=== PATIENT | male | born 1960 | race Caucasian/White ===

== ENCOUNTER 2018-04-14 15:30 | Outpatient (CLI) | payer OTHER ==
--- NOTE | 2018-04-14 18:04 | XRAY Report ---
THREE VIEW RIGHT HAND: 04/14/2018 CLINICAL INDICATION: Trauma, pain. FINDINGS: AP, lateral, oblique views of the right hand demonstrate mild osteoarthritis of the interphalangeal joints. There is no evidence of acute fracture or dislocation. Soft tissue swelling is seen of the 5th finger. No foreign body is appreciated in the soft tissues. IMPRESSION: SOFT TISSUE SWELLING, BUT NO EVIDENCE OF ACUTE FRACTURE. TD: 04/14/2018 15:54
== END 2018-04-14 15:31 | disposition home or self-care (01) ==
LOC: DI 15:30
PROVIDERS: ATTEND Family Medicine
DX: S60.221A Contusion of right hand, initial encounter (principal); M79.89 Other specified soft tissue disorders

== ENCOUNTER 2018-06-16 13:35 | Outpatient (CLI) | payer OTHER ==
--- NOTE | 2018-06-16 16:46 | XRAY Report ---
Procedure Date: 06/16/2018 Accession Number: [id number] / [id number] Procedure: XRS - Foot 3 View LT CPT Code: FULL RESULT: EXAM: Foot 3 View LT DATE: 06/16/2018 1:45 PM CLINICAL HISTORY: CHRONIC PAIN 1ST MP JOINT HALLUX L COMPARISON: None. TECHNIQUE: 3 views. FINDINGS: There is no fracture or dislocation. There is joint space loss of the first metatarsophalangeal joint with marginal osteophytosis laterally and subchondral sclerosis. IMPRESSION: Degenerative changes of the first metatarsophalangeal joint as described. RADIA
== END 2018-06-16 13:36 | disposition home or self-care (01) ==
LOC: DI.S 13:35
PROVIDERS: ATTEND Podiatrist
DX: M19.072 Primary osteoarthritis, left ankle and foot (principal)

== ENCOUNTER 2019-03-05 12:02 | Emergency (ER) | payer OTHER ==
[2019-03-05 12:13] VITALS: BP 130/63
[2019-03-05] MEDS ORDERED: TETANUS/DIPHTHERIA/PERTUSSIS 0.5 ML SYRINGE IM ONE (13:20)
--- NOTE | 2019-03-05 13:24 | ED Physician Documentation ---
PD HPI UPPER EXT INJURY - Stated complaint Stated Complaint: L THUMB LAC - Chief complaint Chief Complaint: Laceration - History obtained from History obtained from: Patient - History of Present Illness Location: Left, Finger (thumb) Type of injury: Laceration Where injury occurred: Work Timing - onset: Today (just prior to arrival) - Additonal information Additional information: The patient is a 59-year-old right-hand dominant male who cut his left thumb with a utility knife while at work less than one hour prior to arrival. Last tetanus booster date is unknown. Review of Systems Skin: reports: Laceration (s) Neurologic: denies: Focal weakness, Numbness PD PAST MEDICAL HISTORY - Past Medical History Endocrine/Autoimmune: None - Allergies Allergies/Adverse Reactions: Allergies Allergy/AdvReac Type Severity Reaction Status Date / Time No Known Drug Allergies Allergy Verified 03/05/19 12:08 - Social History Does the pt smoke?: No PD ED PE NORMAL - Vitals Vital signs reviewed: Yes (normal) - General General: Alert and oriented X 3, Well developed/nourished - HEENT HEENT: Atraumatic - Respiratory Respiratory: No respiratory distress - Derm Derm: No rash - Extremities Extremities: Other (There is a 1 cm laceration on the radial aspect of the left thumb, distal to the IP joint. He has full flexion and extension at the IP and MP joints, against resistance. Distal neurovascular is intact.) - Neuro Neuro: Alert and oriented X 3, No motor deficit, No sensory deficit Results - Vitals Vitals: Oxygen O2 Source Room air Procedures - Laceration (location) left thumb Length in cm: 1 Wound type: Linear Neurovascular status: Sensory intact, Motor intact, Vascular intact Tendon involvement: Tendon intact Anesthesia: Lidocaine 1% with epi Wound Preparation: Hibiclens, Irrigated copiously NS, Wound explored, To the base. No: FB identified Skin layer closure: Nylon, Interrupted, Size #-0 - enter number (5), Sutures - enter # (4) Other: Patient tolerated well, No complications, Neurovascular intact, Dressing applied, Tetanus booster given Complexity: Simple PD MEDICAL DECISION MAKING - ED course Complexity details: d/w patient, other (L&I form was completed.) ED course: The patient's presentation is significant for laceration to the left thumb. There is no evidence of foreign body, tendon involvement, or neurovascular injury. Treatment in the emergency department included suture repair of the wound after local anesthetic and thorough cleaning. Antibiotic ointment and gauze dressing was applied. Tetanus booster was administered. Departure - Departure Disposition: 01 Home, Self Care Clinical Impression: Laceration Condition: Stable Instructions: ED Laceration Hand Follow-Up: Malathi Ellison MD [Physician No Access] - Comments: Keep the wound clean, and apply antibiotic ointment daily. You can use Tylenol or ibuprofen if needed for pain or discomfort. Follow-up for suture removal in 10-12 days. Return to the emergency department if you develop any sign of infection, or otherwise worsening symptoms. Discharge Date/Time: 03/05/19 13:41
== END 2019-03-05 13:41 | disposition home or self-care (01) ==
LOC: ED 12:02
DX: S61.012A Laceration without foreign body of left thumb without damage to nail, initial encounter (principal); W26.0XXA Contact with knife, initial encounter; Y99.0 Civilian activity done for income or pay; Z23 Encounter for immunization
CPT/HCPCS: 1040M; 12001; 90471; 90715; 99282; 99283

== ENCOUNTER 2020-02-17 18:18 | Outpatient (CLI) | payer OTHER | END 2020-02-17 18:19 | disposition home or self-care (01) | LOC: COV 18:18 | PROVIDERS: ATTEND Family Medicine | DX: R05 Cough (principal) ==

== ENCOUNTER 2020-09-30 18:10 | Outpatient (CLI) | payer MEDICAID ==
--- NOTE | 2020-09-30 18:51 | XRAY Report ---
PROCEDURE: Hand 3 View RT INDICATIONS: RIGHT DORSAL WRIST PAIN , R WRIST AND HAND SWELLING, PAIN 4TH MCP TECHNIQUE: 3 views of the hand(s) acquired. COMPARISON: 04/14/2018 FINDINGS: Bones: No fractures or dislocations. No suspicious bony lesions. Soft tissues: No suspicious soft tissue calcifications. IMPRESSION: Right hand without acute osseous abnormalities or dislocation. If there is persistent clinical concern for a radiographically fracture, recommend immobilization and repeat imaging in 10 to 14 days. Reviewed by: Que Fournier MD on 09/30/2020 5:49 PM [facility] Approved by: Que Fournier MD on 09/30/2020 5:49 PM [facility] Station ID: [id number]
--- NOTE | 2020-09-30 18:52 | XRAY Report ---
PROCEDURE: Wrist 4 View RT INDICATIONS: RIGHT DORSAL WRIST PAIN , R WRIST AND HAND SWELLING, PAIN 4TH MCP TECHNIQUE: 4 views of the wrist were acquired. COMPARISON: Right hand radiographs dated 04/14/2018 FINDINGS: Bones: No fractures or dislocations. No suspicious bony lesions. Scaphoid view: Scaphoid appears intact. Scapholunate interval is maintained. Soft tissues: No suspicious soft tissue calcifications. Mild soft tissue swelling over the dorsal s urface of the right hand. IMPRESSION: Right wrist without acute fracture or dislocation. If there is persistent clinical concern for a radiographically fracture, recommend immobilization and repeat imaging in 10 to 14 days. Reviewed by: Que Fournier MD on 09/30/2020 5:51 PM [facility] Approved by: Que Fournier MD on 09/30/2020 5:51 PM [facility] Station ID: [id number]
== END 2020-09-30 18:11 | disposition home or self-care (01) ==
LOC: DI 18:10
PROVIDERS: ATTEND Naturopath
DX: M25.531 Pain in right wrist (principal); R22.31 Localized swelling, mass and lump, right upper limb; M79.641 Pain in right hand

== ENCOUNTER 2020-10-12 13:24 | Outpatient (CLI) | payer MEDICAID | END 2020-10-12 13:25 | disposition home or self-care (01) | LOC: COV 13:24 | PROVIDERS: ATTEND Family Medicine | DX: R53.83 Other fatigue (principal); J02.9 Acute pharyngitis, unspecified; R09.81 Nasal congestion; Z20.828 Contact with and (suspected) exposure to other viral communicable diseases ==

== ENCOUNTER 2022-08-01 17:32 | Outpatient (CLI) | payer OTHER ==
--- NOTE | 2022-08-02 09:55 | XRAY Report ---
PROCEDURE: Lumbar Spine 2 View INDICATIONS: WORSENING MID/THORACIC LUMBAR PAIN TECHNIQUE: 2 views of the lumbar spine were acquired. COMPARISON: None. FINDINGS: Bones: 5 [id number] vertebrae are present. There is 4 mm retrolisthesis of L2 on L3 is seen. M ild degenerative endplate changes and bilateral facet arthrosis at L2-3 through L5-S1 level is seen. No vertebral body compression fractures. No suspicious bony lesions. Soft tissues: Overlying bowel gas pattern is normal. No suspicious soft tissue calcifications. IMPRESSION: Mild degenerative disc disease throughout lumbar spine. No acute compression fracture. 4 mm retrolisthesis of L2 on L3. Reviewed by: Teja Saul MD on 08/02/2022 9:53 AM PDT Approved by: Teja Saul MD on 08/02/2022 9:53 AM PDT Station ID: [id number]
--- NOTE | 2022-08-02 10:08 | XRAY Report ---
PROCEDURE: Thoracic Spine 2 View INDICATIONS: WORSENING MID/THORACIC LUMBAR PAIN TECHNIQUE: 2 views of the thoracic spine were acquired. COMPARISON: None. FINDINGS: Bones: No fractures or dislocations. No suspicious bony lesions. 12 pairs of ribs are noted, and a ppear intact where visualized. Soft tissues: No paravertebral stripe thickening. IMPRESSION: Unremarkable radiographic examination of thoracic spine. Reviewed by: Teja Saul MD on 08/02/2022 10:06 AM PDT Approved by: Teja Saul MD on 08/02/2022 10:06 AM PDT Station ID: [id number]
== END 2022-08-01 17:33 | disposition home or self-care (01) ==
LOC: DI.S 17:32
PROVIDERS: ATTEND Family Medicine
DX: M43.16 Spondylolisthesis, lumbar region (principal); M51.36 Other intervertebral disc degeneration, lumbar region; M51.37 Other intervertebral disc degeneration, lumbosacral region

== ENCOUNTER 2023-06-20 08:16 | Outpatient (CLI) | payer OTHER ==
[2023-06-20 14:46] LABS: BASOPHILS # (AUTO) 0.1 10^3/uL (0.0-0.1); EOSINOPHILS # (AUTO) 0.2 10^3/uL (0.0-0.7); EOSINOPHILS % (AUTO) 4.2 %; HCT - HEMATOCRIT 47.8 % (42.0-52.0); HGB - HEMOGLOBIN 15.1 g/dL (14.0-18.0); LYMPHOCYTES # (AUTO) 1.4 10^3/uL (1.5-3.5); LYMPHOCYTES % (AUTO) 24.2 %; MEAN CORPUSCULAR HEMOGLOBIN 29.2 pg (27.0-31.0); MEAN CORPUSCULAR HGB CONC 31.6 g/dL (32.0-36.0); MEAN CORPUSCULAR VOLUME 92.5 fL (80.0-94.0); MEAN PLATELET VOLUME 10.6 fL (7.4-11.4); MONOCYTES # (AUTO) 0.4 10^3/uL (0.0-1.0); MONOCYTES % (AUTO) 7.5 %; NEUTROPHILS # (AUTO) 3.6 10^3/uL (1.5-6.6); NEUTROPHILS % (AUTO) 62.9 %; PLT - PLATELET COUNT 223 10^3/uL (130-450); RED BLOOD COUNT 5.17 10^6/uL (4.70-6.10); RED CELL DISTRIBUTION WIDTH 12.4 % (12.0-15.0); WHITE BLOOD COUNT 5.8 x10^3/uL (4.8-10.8)
[2023-06-20 15:17] LABS: ESTIMATED AVERAGE GLUCOSE 100 mg/dL (70-100); HEMOGLOBIN A1c% 5.1 % (4.27-6.07)
[2023-06-20 15:32] LABS: % IRON SATURATION 24 % (20-50); ALBUMIN 4.7 g/dL (3.2-5.5); ALBUMIN/GLOBULIN RATIO 2.1 (1.0-2.2); ALKALINE PHOSPHATASE 59 IU/L (42-121); ALT ALANINE AMINOTRANSFERASE 12 IU/L (10-60); AST ASPARTATE AMINOTRANSFERASE 17 IU/L (10-42); BILIRUBIN,TOTAL 0.6 mg/dL (0.2-1.0); BUN - BLOOD UREA NITROGEN 22 mg/dL (6-20); CALCIUM 9.5 mg/dL (8.5-10.3); CARBON DIOXIDE - CO2 28 mmol/L (21-32); CHLORIDE 106 mmol/L (101-111); CHOLESTEROL 174 mg/dL; CREATININE 1.1 mg/dL (0.6-1.3); CRP HIGH SENSITIVITY 0.51 mg/L; GFR - MDRD 68 (>89); GLUCOSE 103 mg/dL (74-104); HDL CHOLESTEROL 43 mg/dL; IRON 66 ug/dL (50-212); LDL CHOLESTEROL,CALCULATED 99 mg/dL; LDL/HDL RATIO 2.3 (<3.6); POTASSIUM 4.1 mmol/L (3.5-4.5); SODIUM 139 mmol/L (135-145); TOTAL IRON BINDING CAPACITY 277 ug/dL (250-450); TOTAL PROTEIN 6.9 g/dL (6.4-8.9); TRANSFERRIN 198 mg/dL (203-362); TRIGLYCERIDES 160 mg/dL (48-352); VLDL CHOLESTEROL 32 mg/dL
[2023-06-20 15:53] LABS: FERRITIN 61.7 ng/mL (23.9-336.2)
== END 2023-06-20 08:17 | disposition home or self-care (01) ==
LOC: LAB.S 08:16
PROVIDERS: ATTEND Family Medicine
DX: E78.5 Hyperlipidemia, unspecified (principal); R53.83 Other fatigue; R73.09 Other abnormal glucose; E55.9 Vitamin D deficiency, unspecified; D64.9 Anemia, unspecified; E03.9 Hypothyroidism, unspecified; N40.1 Benign prostatic hyperplasia with lower urinary tract symptoms
CPT/HCPCS: 36415; 80053; 80061; 82626; 82728; 83036; 83090; 83540; 83721; 84153; 84439; 84443; 84466; 84480; 84481; 84482; 85025; 86141

== ENCOUNTER 2023-09-10 09:52 | Day surgery (SDC) | payer OTHER ==
[2023-09-10] MEDS ORDERED: LACTATED RINGERS 1,000 ML IV ONE ×2 (10:23→11:33)
[2023-09-10] MEDS ORDERED: PROPOFOL 500 MG/50 ML 500 MG/50 ML VIAL ONE (10:24)
--- NOTE | 2023-09-10 10:39 | ANESTHESIA ---
Pre-Anesthesia VS, & Labs - Diagnosis screening exam - Procedure colonoscopy Vital Signs: Temp Pulse Resp BP Pulse Ox O2 Flow Rate 36.3 C L 53 L 16 125/70 97 09/10/23 10:16 09/10/23 10:16 09/10/23 10:16 09/10/23 10:16 09/10/23 10:16 Height: 6 ft 3 in Weight (kg): 94.5 kg Body Mass Index: 26.0 BMI Classification: Overweight - NPO >8 hours Home Medications and Allergies Home Medications: Ambulatory Orders buPROPion [Wellbutrin Sr] 1 tab PO DAILY 09/09/23 buPROPion [Wellbutrin Sr] 1 tab PO DAILY 09/09/23 Allergies/Adverse Reactions: Allergies Allergy/AdvReac Type Severity Reaction Status Date / Time No Known Drug Allergies Allergy Verified 03/05/19 12:08 Anes History & Medical History - Anesthetic History Family history of Anesthesia Complications: Denies Family history of Malignant Hyperthermia: Denies - Medical History Cardiovascular: reports: Hypertension Pulmonary: reports: None Gastrointestinal: reports: None Urinary: reports: None Neuro: reports: None Musculoskeletal: reports: None Endocrine/Autoimmune: reports: None Skin: reports: None Smoking Status: Never smoker Psychosocial: reports: Depression, Anxiety History of Cancer?: Yes (BCC) - Surgical History General: reports: Colonoscopy Exam General: Alert, Oriented x3, Cooperative, No acute distress Dental: WNL Mouth Openin Fingerbreadth Neck Mobility: Normal Mallampati classification: II Thyromental Distance: 4-6 cm Mental/Cognitive Status: Alert/Oriented X3, Normal for patient Plan Anesthesia Type: General, Total IV Consent for Procedure(s) Verified and Reviewed: Yes Code Status: Attempt Resuscitation ASA classification: 2-Mild systemic disease Is this case an emergency?: No
[2023-09-10 11:55] VITALS: BP 119/66; O2SAT 98
--- NOTE | 2023-09-10 13:00 | ANESTHESIA POST OP EVALUATION ---
Anesthesia Post Eval - Post Anesthesia Eval Vitals: Last Vital Signs Temp 36.2 C L 09/10/23 11:48 Pulse 62 09/10/23 11:48 Resp 16 09/10/23 11:48 BP 119/66 09/10/23 11:48 Pulse Ox 98 09/10/23 11:48 O2 Flow Rate CV Function Including HR & BP: Stable Pain Control: Satisfactory Nausea & Vomiting: Negative Mental Status: Baseline Respiratory Status: Airway Patent Hydration Status: Satisfactory Anesthesia Complications: None
== END 2023-09-10 09:53 | disposition home or self-care (01) ==
LOC: SDS 09:52
PROVIDERS: ATTEND Surgery
DX: Z12.11 Encounter for screening for malignant neoplasm of colon (principal); K64.1 Second degree hemorrhoids
CPT/HCPCS: 45378; J7120

== ENCOUNTER 2024-08-19 12:34 | Outpatient (CLI) | payer OTHER ==
--- NOTE | 2024-08-19 14:20 | XRAY Report ---
PROCEDURE: Thoracic Spine 2V INDICATIONS: THORACIC PAIN TECHNIQUE: 2 views of the thoracic spine were acquired. COMPARISON: 08/01/2022 FINDINGS: Bones: No fractures or dislocations. No suspicious bony lesions. 12 pairs of ribs are noted, and a ppear intact where visualized. Mild multilevel degenerative changes of the thoracic spine. Soft tissues: No paravertebral stripe thickening. IMPRESSION: No acute bony abnormality. Mild degenerative changes of the thoracic spine. Reviewed by: Francisco Navas MD on 08/19/2024 2:19 PM PDT Approved by: Francisco Navas MD on 08/19/2024 2:19 PM PDT Station ID: [id number]
--- NOTE | 2024-08-19 14:23 | XRAY Report ---
PROCEDURE: Cervical Spine 2-3V INDICATIONS: NECK PAIN TECHNIQUE: 3 view(s) of the cervical spine were acquired. COMPARISON: None. FINDINGS: Bones: No fractures or dislocations to the C7 level. The lateral masses of C1 appear intact on the odontoid view. No suspicious bony lesions. Multilevel degenerative changes of the cervical spine wi th facet and uncovertebral arthropathy, disc height loss, endplate degenerative changes and spurring. This is most pronounced at C5-C6. Straightening of the normal cervical lordosis. Soft tissues: No prevertebral soft tissue swelling. IMPRESSION: Multilevel degenerative changes of the cervical spine, most pronounced at C5-C6. Reviewed by: Francisco Navas MD on 08/19/2024 2:22 PM PDT Approved by: Francisco Navas MD on 08/19/2024 2:22 PM PDT Station ID: [id number]
== END 2024-08-19 12:35 | disposition home or self-care (01) ==
LOC: DI.S 12:34
PROVIDERS: ATTEND Naturopath
DX: M47.814 Spondylosis without myelopathy or radiculopathy, thoracic region (principal); M47.812 Spondylosis without myelopathy or radiculopathy, cervical region